=== PATIENT | male | born 1965 | race Caucasian/White ===

== ENCOUNTER 2019-08-15 21:18 | Inpatient (IN) ==
[2019-08-15] MEDS ORDERED: *HR* LORazepam 2 MG/ML VIAL ONE ×2 (21:29→21:43)
[2019-08-15] MEDS: *HR* LORazepam 2 MG/ML VIAL IM ONE ×2 (21:39→21:51)
[2019-08-15] MEDS ORDERED: *HR* LORazepam 2 MG/ML VIAL IM ONE (21:49)
[2019-08-15] MEDS ORDERED: *HR* Midazolam HCl 2 MG/2 ML VIAL IVP ONE (22:00)
[2019-08-15] MEDS ORDERED: *HR* Midazolam HCl 5 MG/ML VIAL ONE (22:03)
[2019-08-15] MEDS ORDERED: *HR* Midazolam HCl 5 MG/ML VIAL IM ONE (22:15)
[2019-08-15] MEDS ORDERED: Ziprasidone 20 MG in Water for inj. (sterile) 1 ML IM ONE (22:15)
[2019-08-15] MEDS ORDERED: Water for inj. (sterile) 10 ML ONE (22:16)
[2019-08-15] MEDS ORDERED: Ziprasidone 20 MG/VIAL VIAL IM ONE (22:16)
[2019-08-15 22:58] LABS: Amphetamine Screen,Urine Positive ng/mL (Cutoff=1000); Barbiturate Screen,Urine Negative ng/mL (Cutoff=200); Benzodiazepines Screen,Urine Negative ng/mL (Cutoff=200); Cannabinoid Screen,Urine Positive ng/mL (Cutoff = 50); Cocaine Screen,Urine Negative ng/mL (Cutoff= 300); Opiate Screen,Urine Negative ng/mL (Cutoff=300); Phencyclidine Screen,Urine Negative ng/mL (Cutoff=25)
[2019-08-15 22:59] LABS: Basophils % 0.2 %; Eosinophils # 0.1 K/mcL (0.0-0.6); Eosinophils % 1.1 %; Hematocrit 48.3 % (37.5-50.1); Hemoglobin 14.9 g/dL (12.9-16.9); Immature Granulocytes % 0.3 % (0-4); Lymphocytes # 2.9 K/mcL (0.6-4.6); Lymphocytes % 23.6 %; Mean Corpuscular HGB Conc 30.8 g/dL (31.6-35.5); Mean Corpuscular Hemoglobin 27.6 pg (28.0-33.3); Mean Corpuscular Volume 89.4 fL (83.0-100.0); Mean Platelet Volume 9.6 fL (9.4-12.4); Monocytes # 1.4 K/mcL (0.0-1.3); Monocytes % 10.9 %; Neutrophils # 7.9 K/mcL (1.6-8.9); Platelet Count 308 K/mcL (140-400); Red Cell Distribution Width 15.7 % (11.5-14.5); Segmented Neutrophils % 63.9 %; White Blood Count 12.4 K/mcL (4.3-11.1)
[2019-08-15 23:04] LABS: Bilirubin,Urine Negative (Negative); Blood,Urine Trace (Negative); Clarity,Urine Turbid (Clear); Color,Urine Yellow (Yellow); Glucose,Urine (UA) Normal (Normal); Hyaline Casts,Urine Many per lpf (None Seen); Ketones,Urine Negative (Negative); Leukocyte Esterase,Urine Trace (Negative); Mucus,Urine Few per lpf (None-Few); Nitrite,Urine Negative (Negative); PH,Urine 5.5 pH Units (5.0-8.0); Protein,Urine 30 mg/dL (Neg-Trace); RBC,Urine 0-3 per hpf (0-3); Specific Gravity,Urine 1.024 (1.010-1.025); Squamous Epithelial Cell,Urine Few per hpf (None-Few); Urobilinogen,Urine Normal (Normal); WBC,Urine 15-30 per hpf (0-3)
[2019-08-15 23:08] LABS: VBG HCO3 26 mEq/L (21-27); VBG PCO2 39 mmHg (41-51); VBG PH 7.43 pH Units (7.32-7.42); VBG PO2 154 mmHg (25-50)
[2019-08-15 23:28] LABS: Acetaminophen < 10 mcg/mL (10-20); Alanine Aminotransferase 29 Units/L (7-52); Albumin 4.2 g/dL (3.5-5.7); Albumin/Globulin Ratio 1.2 (1.1-2.2); Alkaline Phosphatase 83 Units/L (34-104); Aspartate Amino Transferase 43 Units/L (13-39); BUN/Creatinine Ratio 22 (6-26); Bilirubin,Direct 0.1 mg/dL (0.0-0.2); Bilirubin,Indirect 0.5 mg/dL (0.0-1.0); Bilirubin,Total 0.6 mg/dL (0.3-1.0); Blood Urea Nitrogen 32 mg/dL (6-20); Calcium 9.2 mg/dL (8.6-10.3); Carbon Dioxide 24 mEq/L (23-29); Chloride 101 mEq/L (98-107); Creatine Kinase 1156 Units/L (30-223); Ethanol < 10 mg/dL (Less than 10); Globulin 3.5 g/dL (2.4-3.5); Glucose 93 mg/dL (70-105); Lipase 15 Units/L (11-82); Osmolality,Calculated 305 (280-300); Potassium 3.2 mEq/L (3.5-5.1); Salicylate < 2.5 mg/dL (15.0-30.0); Sodium 144 mEq/L (136-145); Total Protein 7.7 g/dL (6.4-8.9); eGFR For African Americans > 60 (> 60); eGFR For Non-African Americans 51 (> 60)
[2019-08-15] MEDS ORDERED: 0.9 % Sodium Chloride 1,000 ML IVC STA (23:28)
[2019-08-15 23:41] LABS: Thyroid Stimulating Hormone 0.847 mcIU/mL (0.340-5.600)
[2019-08-15 23:45] LABS: Troponin I < 0.03 ng/mL (< 0.04)
[2019-08-16] MEDS ORDERED: 0.9 % Sodium Chloride 1,000 ML IVC STA (00:24)
[2019-08-16 01:17] LABS: Valproate 22 mcg/mL (50-100)
[2019-08-16] MEDS ORDERED: Naloxone 0.4 MG/ML INJ IVP PRN (04:09)
[2019-08-16] MEDS ORDERED: 0.9 % Sodium Chloride 1,000 ML IVC ONE (04:22)
[2019-08-16 04:40] LABS: Hematocrit 47.8 % (37.5-50.1); Hemoglobin 14.9 g/dL (12.9-16.9); Mean Corpuscular HGB Conc 31.2 g/dL (31.6-35.5); Mean Corpuscular Hemoglobin 28.3 pg (28.0-33.3); Mean Corpuscular Volume 90.9 fL (83.0-100.0); Mean Platelet Volume 9.8 fL (9.4-12.4); Platelet Count 253 K/mcL (140-400); Red Blood Count 5.26 M/mcL (4.19-5.50); Red Cell Distribution Width 15.6 % (11.5-14.5); White Blood Count 10.4 K/mcL (4.3-11.1)
[2019-08-16 04:59] LABS: Alanine Aminotransferase 26 Units/L (7-52); Albumin/Globulin Ratio 1.3 (1.1-2.2); Alkaline Phosphatase 79 Units/L (34-104); Aspartate Amino Transferase 44 Units/L (13-39); BUN/Creatinine Ratio 28 (6-26); Bilirubin,Total 0.5 mg/dL (0.3-1.0); Blood Urea Nitrogen 26 mg/dL (6-20); Calcium 8.9 mg/dL (8.6-10.3); Carbon Dioxide 30 mEq/L (23-29); Chloride 103 mEq/L (98-107); Creatine Kinase 1368 Units/L (30-223); Globulin 3.2 g/dL (2.4-3.5); Glucose 89 mg/dL (70-105); Magnesium 2.3 mg/dL (1.6-2.6); Osmolality,Calculated 302 (280-300); Phosphorous 4.9 mg/dL (2.7-4.5); Potassium 2.9 mEq/L (3.5-5.1); Sodium 144 mEq/L (136-145); Total Protein 7.2 g/dL (6.4-8.9); eGFR For African Americans > 60 (> 60); eGFR For Non-African Americans > 60 (> 60)
[2019-08-16 05:25] LABS: ABG Base Excess 4 mEq/L (-2 to 3); ABG HCO3 29 mEq/L (21-27); ABG Oxygen Saturation 90 % (95-98); ABG PCO2 47 mmHg (35-45); ABG PH 7.41 pH Units (7.32-7.45); ABG PO2 60 mmHg (85-104); ABG TCO2 31 mEq/L (20-26)
[2019-08-16 05:42] LABS: INR 1.1; Prothrombin Time 12.2 Seconds (9.4-12.1)
[2019-08-16] MEDS ORDERED: Potassium Chloride 40 MEQ, Lidocaine 1% 2 ML in 0.9 % Sodium Chloride 500 ML IVPB ONE (07:04)
[2019-08-16] MEDS ORDERED: Albuterol 2.5 MG/3 ML NEBULIZER IH PRN (12:44)
[2019-08-16] MEDS: Budesonide/Formoterol 160/4.5 1 PUFF INH IH SCH ×2 (13:57→20:06)
[2019-08-16 15:49] LABS: BUN/Creatinine Ratio 28 (6-26); Blood Urea Nitrogen 18 mg/dL (6-20); Calcium 8.6 mg/dL (8.6-10.3); Carbon Dioxide 28 mEq/L (23-29); Chloride 104 mEq/L (98-107); Creatine Kinase 2701 Units/L (30-223); Glucose 80 mg/dL (70-105); Osmolality,Calculated 299 (280-300); Potassium 3.4 mEq/L (3.5-5.1); Sodium 144 mEq/L (136-145); eGFR For African Americans > 60 (> 60); eGFR For Non-African Americans > 60 (> 60)
[2019-08-16] MEDS: *HR* Heparin 5,000 UNIT/ML VIAL SQ SCH (17:20)
[2019-08-16] MEDS: Pregabalin 50 MG CAPSULE PO SCH ×2 (17:20→20:53)
[2019-08-16] MEDS: Metoprolol 100 MG TABLET PO SCH (20:54)
[2019-08-16] MEDS ORDERED: Divalproex (24 HR) 500 MG TABLET PO SCH (21:00)
[2019-08-17] MEDS ORDERED: Acetaminophen 325 MG TABLET PO PRN (04:19)
[2019-08-17] MEDS: *HR* Heparin 5,000 UNIT/ML VIAL SQ SCH (05:41)
[2019-08-17 06:16] LABS: Hematocrit 45.8 % (37.5-50.1); Hemoglobin 14.1 g/dL (12.9-16.9); Mean Corpuscular HGB Conc 30.8 g/dL (31.6-35.5); Mean Corpuscular Hemoglobin 27.5 pg (28.0-33.3); Mean Corpuscular Volume 89.3 fL (83.0-100.0); Mean Platelet Volume 9.2 fL (9.4-12.4); Platelet Count 209 K/mcL (140-400); Red Blood Count 5.13 M/mcL (4.19-5.50); Red Cell Distribution Width 15.8 % (11.5-14.5); White Blood Count 7.3 K/mcL (4.3-11.1)
[2019-08-17 06:40] LABS: BUN/Creatinine Ratio 25 (6-26); Blood Urea Nitrogen 15 mg/dL (6-20); Calcium 8.8 mg/dL (8.6-10.3); Carbon Dioxide 31 mEq/L (23-29); Chloride 101 mEq/L (98-107); Creatine Kinase 1761 Units/L (30-223); Glucose 91 mg/dL (70-105); Osmolality,Calculated 290 (280-300); Potassium 3.1 mEq/L (3.5-5.1); Sodium 140 mEq/L (136-145); eGFR For African Americans > 60 (> 60); eGFR For Non-African Americans > 60 (> 60)
[2019-08-17 07:08] VITALS: BP 119/77
[2019-08-17] MEDS: Budesonide/Formoterol 160/4.5 1 PUFF INH IH SCH (07:39)
[2019-08-17] MEDS ORDERED: 0.9 % Sodium Chloride 1,000 ML IVC SCH (08:00)
[2019-08-17] MEDS ORDERED: amLODIPine 5 MG TABLET PO SCH (09:00)
[2019-08-17] MEDS ORDERED: Aspirin Enteric Coated 81 MG Tablet PO SCH (09:00)
[2019-08-17] MEDS: Metoprolol 100 MG TABLET PO SCH (09:10)
[2019-08-17] MEDS: Pregabalin 50 MG CAPSULE PO SCH (09:12)
== END 2019-08-17 12:04 | disposition home or self-care (01) | DRG 897 ==
LOC: EMEROOARM 21:18 → 3ANU 21:18 → SUATTDRO 08-16 11:09
PROVIDERS: ADMIT Internal Medicine; ATTEND Internal Medicine

== ENCOUNTER 2019-09-08 10:21 | Inpatient (IN) ==
[~2019-09-08 10:21] MED LIST: *HR* HYDROmorphone (PF) 1 MG/ML SYRINGE IVP PRN; *HR* HYDROmorphone 2 MG TABLET PO PRN; *HR* Labetalol 20 MG/4 ML SYRINGE IVP PRN; *HR* OxyCODONE Immed Rel 5 MG TABLET PO PRN; *HR* Promethazine 25 MG/ML VIAL IVP PRN; Acetaminophen IV 1,000 MG/100 ML INFUS..BTL IVPB ONE; Famotidine 20 MG/2 ML VIAL IVP ONE; Total Joint Mixture (50 ml) INTRAART ONE
[2019-09-08] MEDS ORDERED: *HR* Midazolam HCl 2 MG/2 ML VIAL ONE (10:26)
[2019-09-08] MEDS ORDERED: *HR* FentaNYL (PF) 100 MCG/2 ML VIAL ONE (10:26)
[2019-09-08] MEDS ORDERED: *HR* Propofol 200 MG/20 ML VIAL IVP ONE (10:28)
[2019-09-08] MEDS ORDERED: Dexamethasone 4 MG/ML VIAL ONE (10:31)
[2019-09-08] MEDS ORDERED: Lidocaine -MPF 2% 2 ML VIAL ONE (10:31)
[2019-09-08] MEDS ORDERED: Ondansetron 4 MG/2 ML VIAL ONE (10:31)
[2019-09-08] MEDS ORDERED: Ropivacaine/PF 0.5% 30 ML VIAL ONE (10:37)
[2019-09-08] MEDS ORDERED: Vancomycin 1,000 MG VIAL ONE (10:38)
[2019-09-08] MEDS ORDERED: Ethanol\\Acetic Acid\\Na Ace\\Ben 1,000 ML IRRIG.SOLN IR ONE (10:38)
[2019-09-08] MEDS ORDERED: Albuterol 2.5 MG/3 ML NEBULIZER ONE (10:47)
[2019-09-08] MEDS ORDERED: ceFAZolin 2,000 MG in Water for inj. (sterile) 20 ML IVP ONE (11:07)
[2019-09-08] MEDS ORDERED: CeFAZolin Syr 2,000MG/20 ML 2,000 MG/20 ML SYRINGE IVPB ONE (11:10)
[2019-09-08] MEDS ORDERED: Tranexamic Acid 1,000 MG/10 ML VIAL ONE (11:11)
[2019-09-08] MEDS: Ringers Solution, Lactated 1,000 ML IVC SCH ×2 (11:15→12:35)
[2019-09-08] MEDS ORDERED: Dextrose Gel 15 GM/37.5 ML TUBE PO PRN ×2 (14:39)
[2019-09-08] MEDS ORDERED: MOM Conc 10 ML UD.LIQ PO PRN (14:39)
[2019-09-08] MEDS ORDERED: Nitroglycerin 0.4 MG TAB.SUBL SL PRN (14:39)
[2019-09-08] MEDS ORDERED: Albuterol 2.5 MG/3 ML NEBULIZER IH PRN (14:39)
[2019-09-08] MEDS ORDERED: Sennosides 8.6 MG TABLET PO PRN (14:39)
[2019-09-08] MEDS ORDERED: Ringers Solution, Lactated 1,000 ML IVC SCH (14:39)
[2019-09-08] MEDS ORDERED: Ondansetron 4 MG/2 ML VIAL IVP PRN (14:39)
[2019-09-08] MEDS ORDERED: *HR* Promethazine 25 MG/ML VIAL IVP PRN (14:39)
[2019-09-08] MEDS ORDERED: *HR* Dextrose 50 % in Water (Vial) 50 ML VIAL IVP PRN (14:39)
[2019-09-08] MEDS ORDERED: Ketoconazole Shampoo 120 ML BOTTLE TP PRN (14:39)
[2019-09-08] MEDS ORDERED: Naloxone 0.4 MG/ML INJ IVP PRN (14:39)
[2019-09-08] MEDS ORDERED: Ibuprofen 600 MG TABLET PO PRN (14:39)
[2019-09-08] MEDS ORDERED: Fluticasone Propionate Nasal 50 MCG/SPRAY BOTTLE NS PRN (14:39)
[2019-09-08] MEDS ORDERED: D5% in Water 1,000 ML IVC PRN (14:39)
[2019-09-08 15:04] LABS: Hematocrit 46.3 % (37.5-50.1)
[2019-09-08 15:12] LABS: Hemoglobin 14.3 g/dL (12.9-16.9)
[2019-09-08] MEDS: *HR* OxyCODONE Immed Rel 5 MG TABLET PO PRN ×2 (16:20→20:25)
[2019-09-08] MEDS: Ipratropium 1 PUFF INHALER IH SCH ×2 (16:26→22:48)
[2019-09-08] MEDS: Pregabalin 50 MG CAPSULE PO SCH ×2 (17:26→19:42)
[2019-09-08] MEDS: Ascorbic Acid 500 MG TABLET PO SCH (17:26)
[2019-09-08] MEDS: CeFAZolin 2 GM/120 ML BAG IVPB SCH (19:41)
[2019-09-08] MEDS: Diclofenac Sodium (DR) 75 MG TABLET.DR PO SCH (19:42)
[2019-09-08] MEDS: Metoprolol 100 MG TABLET PO SCH (19:42)
[2019-09-08] MEDS: Insulin LISPRO 300 UNITS/3 ML VIAL SQ SCH ×2 (20:28→20:29)
[2019-09-08] MEDS ORDERED: Insulin LISPRO 300 UNITS/3 ML VIAL SQ SCH (21:00)
[2019-09-08] MEDS ORDERED: Divalproex (24 HR) 500 MG TABLET PO SCH (21:00)
[2019-09-08] MEDS: Budesonide/Formoterol 160/4.5 1 PUFF INH IH SCH (22:48)
[2019-09-09] MEDS: HYDROcodone BIT/Homatropine 5 MG TABLET PO PRN ×2 (00:01→04:44)
[2019-09-09] MEDS: Ipratropium 1 PUFF INHALER IH SCH ×2 (03:15→09:06)
[2019-09-09] MEDS: *HR* OxyCODONE Immed Rel 5 MG TABLET PO PRN ×3 (03:26→12:38)
[2019-09-09] MEDS: CeFAZolin 2 GM/120 ML BAG IVPB SCH (03:28)
[2019-09-09 05:17] LABS: Basophils % 0.1 %; Hematocrit 41.4 % (37.5-50.1); Hemoglobin 12.9 g/dL (12.9-16.9); Immature Granulocytes % 0.6 % (0-4); Lymphocytes # 1.4 K/mcL (0.6-4.6); Lymphocytes % 10.8 %; Mean Corpuscular HGB Conc 31.2 g/dL (31.6-35.5); Mean Corpuscular Hemoglobin 27.7 pg (28.0-33.3); Mean Platelet Volume 10.7 fL (9.4-12.4); Monocytes % 7.7 %; Neutrophils # 10.2 K/mcL (1.6-8.9); Platelet Count 216 K/mcL (140-400); Red Blood Count 4.65 M/mcL (4.19-5.50); Red Cell Distribution Width 15.4 % (11.5-14.5); Segmented Neutrophils % 80.8 %; White Blood Count 12.6 K/mcL (4.3-11.1)
[2019-09-09 05:36] LABS: BUN/Creatinine Ratio 24 (6-26); Blood Urea Nitrogen 14 mg/dL (6-20); Calcium 8.5 mg/dL (8.6-10.3); Carbon Dioxide 29 mEq/L (23-29); Chloride 99 mEq/L (98-107); Glucose 141 mg/dL (70-105); Osmolality,Calculated 287 (280-300); Potassium 3.9 mEq/L (3.5-5.1); Sodium 137 mEq/L (136-145); eGFR For African Americans > 60 (> 60); eGFR For Non-African Americans > 60 (> 60)
[2019-09-09] MEDS: Diclofenac Sodium (DR) 75 MG TABLET.DR PO SCH (08:27)
[2019-09-09] MEDS: Ascorbic Acid 500 MG TABLET PO SCH (08:28)
[2019-09-09] MEDS: Metoprolol 100 MG TABLET PO SCH (08:28)
[2019-09-09] MEDS: Pregabalin 50 MG CAPSULE PO SCH (08:29)
[2019-09-09] MEDS: Insulin LISPRO 300 UNITS/3 ML VIAL SQ SCH ×2 (08:37→12:42)
[2019-09-09] MEDS ORDERED: Furosemide 40 MG TABLET PO SCH (09:00)
[2019-09-09] MEDS ORDERED: Aspirin Enteric Coated 81 MG Tablet PO SCH ×2 (09:00)
[2019-09-09] MEDS ORDERED: hydroCHLOROthiazide 25 MG TABLET PO SCH (09:00)
[2019-09-09] MEDS ORDERED: Isosorbide MONOnitrate (24 HR) 60 MG TAB.ER.24H PO SCH (09:00)
[2019-09-09] MEDS ORDERED: amLODIPine 5 MG TABLET PO SCH (09:00)
[2019-09-09] MEDS ORDERED: Multivit/Ca/Min/Fe/FA 1 TAB TABLET PO SCH (09:00)
[2019-09-09] MEDS ORDERED: allopurinoL 300 MG TABLET PO SCH (09:00)
[2019-09-09] MEDS: Budesonide/Formoterol 160/4.5 1 PUFF INH IH SCH (09:05)
[2019-09-09 10:56] VITALS: BP 115/70
== END 2019-09-09 12:55 | disposition home health service (06) | DRG 467 ==
LOC: SAMDAY 10:21 → 3NENU 14:32
PROVIDERS: ADMIT Orthopaedic Surgery; ATTEND Orthopaedic Surgery